=== PATIENT | male | born 1995 | race Caucasian/White ===

== ENCOUNTER 2016-10-04 14:52 | Emergency (ER) | payer BC ==
[2016-10-04] MEDS ORDERED: Diph,Pert(Acell),Tet Vac 0.5 ML SYR IM ONE (15:40)
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
[2016-10-04] MEDS ORDERED: CEPHALEXIN 500 MG CAPSULE PO STA (16:47)
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
== END 2016-10-04 17:06 | disposition home or self-care (01) ==
LOC: ER 14:52
DX: S81.012A Laceration without foreign body, left knee, initial encounter (principal); V19.3XXA Pedal cyclist (driver) (passenger) injured in unspecified nontraffic accident, initial encounter; Y93.55 Activity, bike riding
CPT/HCPCS: 12032; 90715; 96372; 99283; 99284